=== PATIENT | female | born 1995 | race Caucasian/White ===

== ENCOUNTER 2022-10-21 09:52 | Day surgery (SDC) | payer BC ==
[2022-10-20 08:51] VITALS: BMI 21.9
[2022-10-21 10:36] LABS: Hemoglobin 11.8 g/dL (12.0-15.5); Mean Corpuscular HGB CONC 34.5 g/dL (32.0-36.0); Mean Corpuscular Hemoglobin 32.3 pg (27.0-33.0); Mean Corpuscular Volume 93.7 fl (81.6-98.3); Mean Platelet Volume 10.2 fl (7.4-10.4); Platelet Count 255 10x3/uL (150-450); RBC Distribution Width 11.7 % (11.5-14.5); Red Blood Cell (RBC) Count 3.65 10x6/uL (3.90-5.03); White Blood Cell (WBC) Count 5.8 10x3/uL (3.5-10.5)
[2022-10-21] MEDS ORDERED: Acetaminophen 500 MG TAB ONE (10:51)
[2022-10-21] MEDS ORDERED: CEFAZOLIN 2 GM VIAL ONE (12:53)
[2022-10-21] MEDS ORDERED: PROPOFOL 40 ML ONE (12:57)
[2022-10-21] MEDS ORDERED: Dexamethasone 4 mg/ml Vial ONE (12:57)
[2022-10-21] MEDS ORDERED: Ondansetron PF 4 MG/2 ML Vial ONE (12:57)
[2022-10-21] MEDS ORDERED: PHENYLEPHRINE-NS 100 MCG/ML 10 ML SYRINGE ONE (13:08)
[2022-10-21] MEDS ORDERED: Fentanyl 100 MCG/2 ML VIAL ONE (13:17)
[2022-10-21] MEDS ORDERED: Ketorolac Tromethamine 30 MG/ML VIAL ONE (13:18)
[2022-10-21] MEDS ORDERED: Glycopyrrolate 0.2 MG/ML 5 ML SYRINGE ONE (13:27)
[2022-10-21] MEDS ORDERED: Esmolol 100 MG/10 ML VIAL ONE (13:37)
[2022-10-21] MEDS ORDERED: diphenhydrAMINE 50 MG/ML VIAL ONE (13:47)
== END 2022-10-21 14:50 | disposition home or self-care (01) ==
LOC: CSHSDC 09:52
PROVIDERS: ATTEND Obstetrics & Gynecology
PROC: 10D17ZZ Extraction of Products of Conception, Retained, Via Natural or Artificial Opening (ICD-10-PCS; principal; 2022-10-21)
DX: O02.1 Missed abortion (principal)
CPT/HCPCS: 85027; 86850; 86900; 86901; 88305; J1100; J1200; J1885; J2405; J2704; J3010